=== PATIENT | female | born 1975 | race Caucasian/White ===

== ENCOUNTER 2017-06-03 16:00 | Outpatient (RCR) | payer BC, SELFPAY ==
--- NOTE | 2017-07-08 08:33 | HP.PTDCNRP_ITS ---
HP - Discharge Summary (1) - Patient Information JAKI LEE was seen in my office for initial evaluation on 09/03/16. The following Plan of Care was established for this patient: - Anticipated Interventions Patient/Client Instruction: Educate patient on: Condition, Plan of Care For the Purpose of:: To decrease pain, To increase ROM, To improve nutrient delivery to tissue, To increase oxygenation perfusion, To improve muscle performance and motor function, To increase tolerance to activity/condition/ position, To improve ability of physical actions for home/community/work/leisure , To decrease soft tissue restriction, To improve ability to perform tasks related to life management Therapeutic Exercise to Include: Strength training, Postural training, Flexibilty training, Active ROM For the Purpose of:: To decrease pain, To increase ROM, To improve nutrient delivery to tissue, To increase oxygenation perfusion, To increase tolerance to activity/condition/position, To improve ability of physical actions for home/ community/work/leisure, To improve health of tissue, To decrease soft tissue restriction, To increase flexibility/ROM, To improve ability to perform tasks related to life management Manual Therapy Techniques to Include: Trigger point massage, Mobilization, Soft tissue mobilization For the Purpose of:: To decrease pain, To increase ROM, To improve nutrient delivery to tissue, To increase oxygenation perfusion, To improve health of tissue, To decrease soft tissue restriction, To increase flexibility/ROM This patient was last seen in our office 06/03/17. Pertinent comments regarding their Physical therapy will appear below: This patient seen for PT for myofascial pain focusing on manual therapy STM/ myofascial -cervical/lumbar treament. Patient had postive response with less pain,but pain affcted job demands. At this point I will be discontinuing this patient from physical therapy. I would be happy to see this patient again in the future if found appropriate by the physician. Thank you! Bismark Haskins, PT,
== END 2017-06-03 19:00 | disposition home or self-care (01) ==
LOC: PT 16:00
PROVIDERS: Family Provider Family Medicine; PCP Family Medicine
DX: M79.1 Myalgia (principal)
CPT/HCPCS: 97140